=== PATIENT | female | born 1995 | race Caucasian/White ===

== ENCOUNTER 2022-06-01 19:33 | Emergency (ER) | payer SELFPAY ==
[~2022-06-01] VITALS: Ht 160 cm; Wt 86.2 kg
[2022-06-01] MEDS ORDERED: NS IV 1000 ML 1,000 ML IV STA (20:22)
--- NOTE | 2022-06-01 20:27 | ED General ---
General Chief Complaint: Head/Cervical Problems Stated Complaint: HEAD PAIN Nursing Triage Note: PT AMB TO TRIAGE W C/O CONSTANT BUENROSTRO SX 05/30/22, ALSO EXPERIENCING ABD PAIN THAT IS INTERMITTENT SX TUESDAY, SORE THROAT AND CONGESTION SX 05/28/22, DENIES ABD PAIN AT THIS TIME. PT A&OX4. Source of Information: Patient Exam Limitations: No Limitations History of Present Illness Date Seen by Provider: Jun 01, 2022 Time Seen by Provider: 20:24 Initial Comments Patient is a 26-year-old female who presents the ED with abdominal pain, head pain. History of migraines. She states she started developing this umbilical pain sharp pain Tuesday night. Pain is sharp without radiation and intermittent. Start developing pain behind her neck with radiation to the front part of her head bilateral Tuesday night when the abdominal pain started. Rates pain 8 out of 10 with no increasing pain. She does have a history of migraines states this feels different since the pain has not improved. Has been taking Excedrin Migraine without much improvement. Blurry vision with 2 episodes of nonbilious vomiting today. She does vomit typically with her migraines. History of appendectomy. Not currently on her menstrual cycle. Denies any urinary symptoms. Has been eating and drinking at home. She denies fever, chills, visual changes, body aches, lower extremity weakness. Patient states she started having a mild sore throat on Tuesday but that has improved. Denies dys uria, concern for , vaginal discharge, vaginal bleeding, chest pain, cough, shortness of breath, diarrhea Allergies and Home Medications Allergies Coded Allergies: Penicillins (Verified Allergy, Unknown, 06/01/22) amoxicillin (Verified Allergy, Unknown, 06/01/22) Patient Home Medication List Home Medication List Reviewed: Yes Cephalexin (Cephalexin) 500 Mg Tablet, 500 MG PO BID Prescribed by: SOHAN SCHWARTZ on 06/01/222123 Review of Systems Review of Systems Constitutional: No chills, No diaphoresis, No malaise, No weakness EENTM: No ear pain, No blurred vision, No double vision, No hoarseness, No mouth pain, No mouth swelling Respiratory: No cough, No dyspnea on exertion Cardiovascular: No chest pain Gastrointestinal: abdominal pain; No diarrhea; nausea, vomiting Genitourinary: No decreased output, No discharge, No frequency, No hematuria, No hesitancy Musculoskeletal: No back pain, No joint pain Skin: No change in color, No change in hair/nails All Other Systems Reviewed Negative Unless Noted: Yes Past Kqnkzdi-[id number]-Hmmrcc Hx Patient Social History Tobacco Use?: No Use of E-Cig and/or Vaping dev: No Substance use?: Yes Substance type: Marijuana Alcohol Use?: No Immunizations Up To Date Influenza Vaccine Up-to-Date: No; Not Current Past Medical History Last Menstrual Period: May 12, 2022 Physical Exam Vital Signs Vital Signs - First Documented 06/01/22 19:45 Temp 37.2 Pulse 128 Resp 20 B/P (MAP) 128/88 (101) Pulse Ox 98 O2 Delivery Room Air Capillary Refill : Less Than 3 Seconds Height, Weight, BMI Height: '" Weight: lbs. oz. kg; 33.00 BMI Method: General Appearance: No Apparent Distress, WD/WN Eyes: Bilateral Eye Normal Inspection, Bilateral Eye PERRL, Bilateral Eye EOMI HEENT: PERRL/EOMI, TMs Normal, Normal ENT Inspection, Pharynx Normal Neck: Full Range of Motion, Normal Inspection, Non Tender Respiratory: Chest Non Tender, Lungs Clear, Normal Breath Sounds, No Accessory Muscle Use, No Respiratory Distress Cardiovascular: Regular Rate, Rhythm, No Edema, No Gallop, No JVD, No Murmur Gastrointestinal: Normal Bowel Sounds, No Organomegaly, No Pulsatile Mass, S oft, Tenderness (Umbilical tenderness.) Extremity: Normal Capillary Refill, Normal Inspection, Normal Range of Motion, Non Tender, No Calf Tenderness Neurologic/Psychiatric: Alert, Oriented x3, No Motor/Sensory Deficits, Normal Mood/Affect, technical artist II-XII Norm as Tested Skin: Normal Color, Warm/Dry Progress/Results/Core Measures Suspected Sepsis SIRS Temperature: Pulse: 128 Respiratory Rate: 20 Laboratory Tests 06/01/22 20:23: White Blood Count 11.1H Blood Pressure 128 /88 Mean: 101 Laboratory Tests 06/01/22 20:23: Creatinine 0.67, Platelet Count 321, Total Bilirubin 0.4 Results/Orders Lab Results Laboratory Tests Test 06/01/22 20:23 06/01/22 20:36 Range/Units White Blood Count 11.1 H 4.3-11.0 10^3/uL Red Blood Count 4.63 3.80-5.11 10^6/uL Hemoglobin 12.8 11.5-16.0 g/dL Hematocrit 39 35-52 % Mean Corpuscular Volume 83 80-99 fL Mean Corpuscular Hemoglobin 28 25-34 pg Mean Corpuscular Hemoglobin Concent 33 32-36 g/dL Red Cell Distribution Width 13.6 10.0-14.5 % Platelet Count 321 130-400 10^3/uL Mean Platelet Volume 10.7 9.0-12.2 fL Immature Granulocyte % (Auto) 0 % Neutrophils (%) (Auto) 69 42-75 % Lymphocytes (%) (Auto) 20 12-44 % Monocytes (%) (Auto) 8 0-12 % Eosinophils (%) (Auto) 2 0-10 % Basophils (%) (Auto) 1 0-10 % Neutrophils # (Auto) 7.7 1.8-7.8 10^3/uL Lymphocytes # (Auto) 2.3 1.0-4.0 10^3/uL Monocytes # (Auto) 0.9 0.0-1.0 10^3/uL Eosinophils # (Auto) 0.2 0.0-0.3 10^3/uL Basophils # (Auto) 0.1 0.0-0.1 10^3/uL Immature Granulocyte # (Auto) 0.0 0.0-0.1 10^3/uL Sodium Level 135 135-145 MMOL/L Potassium Level 3.4 L 3.6-5.0 MMOL/L Chloride Level 102 98-107 MMOL/L Carbon Dioxide Level 21 21-32 MMOL/L Anion Gap 12 5-14 MMOL/L Blood Urea Nitrogen 8 7-18 MG/DL Creatinine 0.67 0.60-1.30 MG/DL Estimat Glomerular Filtration Rate 124 BUN/Creatinine Ratio 12 Glucose Level 86 70-105 MG/DL Calcium Level 9.9 8.5-10.1 MG/DL Corrected Calcium 9.6 8.5-10.1 MG/DL Total Bilirubin 0.4 0.1-1.0 MG/DL Aspartate Amino Transf (AST/SGOT) 39 H 5-34 U/L Alanine Aminotransferase (ALT/SGPT) 69 H 0-55 U/L Alkaline Phosphatase 64 40-136 U/L Total Protein 8.3 H 6.4-8.2 GM/DL Albumin 4.4 3.2-4.5 GM/DL Lipase 22 8-78 U/L Urine Color YELLOW Urine Clarity SL CLOUDY Urine pH 7.5 5-9 Urine Specific [place] 1.010 L 1.016-1.022 Urine Protein NEGATIVE NEGATIVE Urine Glucose (UA) NEGATIVE NEGATIVE Urine Ketones 1+ H NEGATIVE Urine Nitrite NEGATIVE NEGATIVE Urine Bilirubin NEGATIVE NEGATIVE Urine Urobilinogen 0.2 < = 1.0 MG/DL Urine Leukocyte Esterase 2+ H NEGATIVE Urine RBC (Auto) TRACE-I H NEGATIVE Urine RBC 0-2 /HPF Urine WBC 2-5 /HPF Urine Squamous Epithelial Cells 25-50 H /HPF Urine Crystals NONE /LPF Urine Bacteria LARGE H /HPF Urine Casts NONE /LPF Urine Mucus SMALL H /LPF Urine Culture Indicated YES Urine Test NEGATIVE NEGATIVE My Orders Orders - FERCHO VALVERDE Cbc With Automated Diff (06/01/22 20:22) Comprehensive Metabolic Panel (06/01/22 20:22) Lipase (06/01/22 20:22) Ua Culture If Indicated (06/01/22 20:22) Ns Iv 1000 Ml (Sodium Chloride 0.9%) (06/01/22 20:22) Hcg,Qualitative Urine (06/01/22 20:22) Prochlorperazine Injection (Compazine In (06/01/22 20:30) Ketorolac Injection (Toradol Injection) (06/01/22 20:30) Diphenhydramine Injection (Benadryl Inje (06/01/22 20:30) Urine Culture (06/01/22 20:36) Ns Iv 1000 Ml (Sodium Chloride 0.9%) (06/01/22 20:39) Prochlorperazine Injection (Compazine In (06/01/22 20:38) Ketorolac Injection (Toradol Injection) (06/01/22 20:39) Diphenhydramine Injection (Benadryl Inje (06/01/22 20:38) Medications Given in ED Current Medications Medications Dose Ordered Sig/Corie Route Start Time Stop Time Status Last Admin Dose Admin Diphenhydramine HCl 25 mg ONCE ONCE IVP 06/01/22 20:30 06/01/22 21:13 DC 06/01/22 20:42 25 MG Ketorolac Tromethamine 30 mg ONCE ONCE IVP 06/01/22 20:30 06/01/22 21:13 DC 06/01/22 20:43 30 MG Prochlorperazine Edisylate 10 mg ONCE ONCE IV 06/01/22 20:30 06/01/22 21:13 DC 06/01/22 20:43 10 MG Vital Signs/I&O 06/01/22 06/01/22 19:45 21:30 Temp 37.2 Pulse 128 128 Resp 20 20 B/P (MAP) 128/88 (101) 135/86 Pulse Ox 98 98 O2 Delivery Room Air Room Air Capillary Refill : Less Than 3 Seconds Blood Pressure Mean: 101 Departure Communication (PCP) Patient presents to ED with headache and abdominal pain. Patient has umbilical tenderness. History of appendectomy. No vaginal bleeding or urinary symptoms. She has no vomiting or diarrhea. Associated headache. Rates head pain 8 out of 10. Different than her typical migraines secondary to no improvement after Excedrin Migraine. Unremarkable. No neurological red flag findings. No meningeal signs. Afebrile. No chest pain or shortness of breath. Vomiting today with a headache. Due to her current complaint migraine cocktail was provided of Compazine, Benadryl and Toradol with a liter of fluid. She had improvement of her migraine right before discharge. Due to the umbilical pain CBC, CMP lipase was ordered. CBC showed white blood count 11.1. Slight elevated liver enzymes. She has no right upper quadrant tenderness concerning for cholecystitis. No evidence of surgical abdomen. Urinalysis was negative for but concerning for UTI. Will discharge with Keflex. Patient's pain improved. No left or right lower quadrant with radiating pain to the flank suggesting nephrolithiasis, ureterolithiasis. She does not appear to be in severe pain suggesting obstructing ureter stone. No right or left lower quadrant suggesting ovarian cyst or ovarian torsion. No vaginal discharge suggesting PID or concern for STD. if pain progresses recommend imaging for further evaluation. She states she felt tired and was wanting to leave. She does have a ride. She felt better to go home. Will discharge with Keflex for UTI. Recheck with urinalysis in 5 to 6 days. Neuro exam Impression Primary Impression: Headache Additional Impression: UTI (urinary tract infection) Disposition: HOME, SELF-CARE Condition: Stable Departure-Patient Inst. Decision time for Depature: 21:24 Ref[facility]: [facility] Patient Instructions: Urinary Tract Infection, Adult ED Scripts Cephalexin (Cephalexin) 500 Mg Tablet 500 MG PO BID for 7 Days, #14 TAB Prov: FERCHO VALVERDE 06/01/22 Work/School Note: Work Release Form Date Seen in the Emergency Department: Jun 01, 2022 Return to Work: Jun 03, 2022 FERCHO VALVERDE Jun 01, 2022 20:27
[2022-06-01] MEDS ORDERED: KETOROLAC 30 MG/ML VIAL IVP ONE (20:30)
[2022-06-01] MEDS ORDERED: diphenhydrAMINE 50 MG/ML INJ (BENADRYL) IVP ONE (20:30)
[2022-06-01] MEDS ORDERED: PROCHLORPERAZINE 10 MG/2ML INJ (COMPAZINE) IV ONE (20:30)
[2022-06-01 20:38] LABS: BASOPHILS # (AUTO) 0.1 10^3/uL (0.0-0.1); BASOPHILS % (AUTO) 1 % (0-10); EOSINOPHILS # (AUTO) 0.2 10^3/uL (0.0-0.3); EOSINOPHILS % (AUTO) 2 % (0-10); HEMATOCRIT 39 % (35-52); HEMOGLOBIN 12.8 g/dL (11.5-16.0); LYMPHOCYTES # (AUTO) 2.3 10^3/uL (1.0-4.0); LYMPHOCYTES % (AUTO) 20 % (12-44); MEAN CORPUSCULAR HEMOGLOBIN 28 pg (25-34); MEAN CORPUSCULAR HGB CONC 33 g/dL (32-36); MEAN CORPUSCULAR VOLUME 83 fL (80-99); MEAN PLATELET VOLUME 10.7 fL (9.0-12.2); MONOCYTES # (AUTO) 0.9 10^3/uL (0.0-1.0); MONOCYTES % (AUTO) 8 % (0-12); NEUTROPHILS # (AUTO) 7.7 10^3/uL (1.8-7.8); NEUTROPHILS % (AUTO) 69 % (42-75); PLATELET COUNT 321 10^3/uL (130-400); WHITE BLOOD COUNT 11.1 10^3/uL (4.3-11.0)
[2022-06-01] MEDS ORDERED: PROCHLORPERAZINE 10 MG/2ML INJ (COMPAZINE) ONE (20:38)
[2022-06-01] MEDS ORDERED: diphenhydrAMINE 50 MG/ML INJ (BENADRYL) ONE (20:38)
[2022-06-01] MEDS ORDERED: KETOROLAC 30 MG/ML VIAL ONE (20:39)
[2022-06-01] MEDS ORDERED: NS IV 1000 ML 1,000 ML ONE (20:39)
[2022-06-01 20:42] LABS: BILIRUBIN,URINE NEGATIVE (NEGATIVE); CLARITY,URINE SL CLOUDY; COLOR,URINE YELLOW; GLUCOSE, URINE (UA) NEGATIVE (NEGATIVE); KETONES,URINE 1+ (NEGATIVE); LEUKOCYTE ESTERASE ,URINE 2+ (NEGATIVE); NITRITE,URINE NEGATIVE (NEGATIVE); PH,URINE 7.5 (5-9); PROTEIN,URINE NEGATIVE (NEGATIVE)
[2022-06-01 20:57] LABS: BACTERIA,URINE LARGE /HPF; RBC,URINE 0-2 /HPF
[2022-06-01 20:58] LABS: SQUAMOUS EPITHELIAL CELL,UR 25-50 /HPF
[2022-06-01 21:16] LABS: ALBUMIN 4.4 GM/DL (3.2-4.5); BILIRUBIN,TOTAL 0.4 MG/DL (0.1-1.0); CALCIUM 9.9 MG/DL (8.5-10.1); CREATININE SERUM 0.67 MG/DL (0.60-1.30); POTASSIUM 3.4 MMOL/L (3.6-5.0); TOTAL PROTEIN 8.3 GM/DL (6.4-8.2)
[2022-06-01] MEDS ORDERED: CEPH500T PO (21:24)
[2022-06-01 21:30] VITALS: BP 135/86
== END 2022-06-01 21:30 | disposition home or self-care (01) ==
LOC: ER 19:41
DX: R51.9 Headache, unspecified (principal); N39.0 Urinary tract infection, site not specified; R74.8 Abnormal levels of other serum enzymes; Z86.69 Personal history of other diseases of the nervous system and sense organs; Z90.49 Acquired absence of other specified parts of digestive tract; Z88.0 Allergy status to penicillin; Z28.310 Unvaccinated for COVID-19
CPT/HCPCS: 36415; 80053; 81000; 83690; 84703; 85025; 87088